=== PATIENT | male | born 1975 | race Caucasian/White ===

== ENCOUNTER 2017-02-13 16:27 | Emergency (ER) | payer MEDICAID ==
[~2017-02-13] VITALS: Ht 165.1 cm; Wt 73.5 kg
[~2017-02-13 16:27] MED LIST: DIAZ-90 PO
[2017-02-13 16:42] VITALS: Ht 165.1 cm; Wt 73.5 kg
[2017-02-13] MEDS ORDERED: ASPIRIN 81 MG TAB PO ONE (21:00)
[2017-02-13 21:19] LABS: ADD SCAN DIFF NO; BASOPHIL # 0.1 10^3/ul (0.0-0.1); BASOPHILS % 0.6 % (0.0-2.0); EOSINOPHILS # 0.3 10^3/ul (0.0-0.5); EOSINOPHILS % 3.6 % (0.0-7.0); HEMATOCRIT 45.9 % (42.0-52.0); HEMOGLOBIN 16.3 g/dl (14.0-18.0); LYMPHOCYTES # 2.8 10^3/ul (0.8-2.9); LYMPHOCYTES % 35.2 % (15.0-51.0); MEAN CORPUSCULAR HEMOGLOBIN 31.4 pg (29.0-33.0); MEAN CORPUSCULAR HGB CONC 35.5 g/dl (32.0-37.0); MEAN CORPUSCULAR VOLUME 88.4 fl (82.0-101.0); MONOCYTE # 0.7 10^3/ul (0.3-0.9); MONOCYTES % 9.3 % (0.0-11.0); NEUTROPHILS % 50.8 % (39.0-77.0); PLATELET COUNT 264 10^3/UL (140-415); RED BLOOD COUNT 5.19 10^6/ul (4.70-6.10); RED CELL DISTRIBUTION WIDTH 12.6 % (11.5-14.5); WHITE BLOOD COUNT 7.9 10^3/ul (4.8-10.8)
[2017-02-13 21:27] LABS: CHLORIDE 101 mmol/L (97-110); POTASSIUM 3.8 mmol/L (3.5-5.1); SODIUM 138 mmol/L (135-144)
[2017-02-13 21:29] LABS: PARTIAL THROMBOPLASTIN TIME 26.8 Sec (25.0-35.0)
--- NOTE | 2017-02-13 21:29 | RADRPT ---
PROCEDURE: XR Chest. CLINICAL INDICATION: Chest pain. TECHNIQUE: PA and Lateral views of the chest were obtained. COMPARISON: None. FINDINGS: The soft tissues are normal. The bony elements are normal. The left ventricle is enlarged. The ca rdiomediastinal silhouette and hilar structures are normal. The pulmonary vasculature is normal. The re is a left-sided aorta. The lungs are clear. The costophrenic angles are normal. IMPRESSION: 1. Mild ventricular enlargement with no evidence of active cardiopulmonary disease. RPTAT:AAJJ Physician Heber Date Time Electronically viewed and signed by Physician Heber on 02/13/2017 21:28 /
[2017-02-13 21:30] LABS: ANION GAP 17 (8-16); CARBON DIOXIDE 24 mmol/L (21-31); CREATININE 0.76 mg/dl (0.61-1.24)
[2017-02-13] MEDS ORDERED: LIDOCAINE/MYLANTA 40 ML BTL PO ONE (21:30)
[2017-02-13 21:31] LABS: BLOOD UREA NITROGEN 13 mg/dl (7-20); CALCIUM 9.1 mg/dl (8.4-10.2); GLUCOSE 126 mg/dl (70-220)
[2017-02-13 21:45] LABS: TROPONIN-I < 0.012 ng/ml (0.00-0.12)
[2017-02-13 21:58] LABS: INR 0.92; PROTIME 12.4 Sec (12.2-14.2)
[2017-02-13 22:41] VITALS: BP 120/68; PULSE 78; RESP 18
[2017-02-13] MEDS ORDERED: KETOROLAC 30 MG INJ IV STA (22:41)
[2017-02-13] MEDS ORDERED: NAPR-688 PO (22:44)
--- NOTE | 2017-02-13 22:51 | ERD ---
ER Documentation Chief Complaint Date/Time DATE: 02/13/17 TIME: 22:45 Chief Complaint chest pain x 4 months and dizziness x 8 months HPI This 41 year male presents to the ER with chest pain described as a aching pain in his left pectoral muscle made worse with flexion of that muscle for 4 months. Also states that he gets dizzy on and off for 8 months. Dizziness is described as slightly lightheaded. He does not have any medical problems and does not have a primary care physician. He has no shortness of breath nausea or vomiting associated with the pain. He does not feel dizzy currently. She had no headaches. He has not suffered any trauma to the area that he knows of but he does occasionally do heavy lifting. ROS All systems reviewed and are negative except as per history of present illness. Medications Home Meds Active Scripts Naproxen* (Naproxen*) 500 Mg Tablet, 500 MG PO BID, #20 TAB Prov:PATELESTELLE 02/13/17 Diazepam* (Valium*) 5 Mg Tablet, 5 MG PO Q8 Y for ANXIETY, #15 TAB Prov:LORRIE ODOM 07/23/16 Allergies Allergies: Coded Allergies: No Known Allergy (Unverified , 07/22/16) PMhx/Soc Medical and Surgical Hx: pt denies Surgical Hx History of Surgery: No Anesthesia Reaction: No Hx Neurological Disorder: No Hx Respiratory Disorders: No Hx Cardiac Disorders: Yes (HTN) Hx Psychiatric Problems: No Hx Miscellaneous Medical Probl: No Hx Alcohol Use: Yes (SOCIAL) Hx Substance Use: No Hx Tobacco Use: No Smoking Status: Never smoker Physical Exam Vitals Vital Signs Date Time Temp Pulse Resp B/P Pulse Ox O2 Delivery O2 Flow Rate FiO2 02/13/17 22:41 78 18 120/68 97 Room Air 02/13/17 20:54 Nasal Cannula 3 02/13/17 20:53 88 18 107/77 97 Room Air 02/13/17 16:42 98.0 86 20 117/79 95 Physical Exam Const: [] No distress Head: Atraumatic Eyes: Normal Conjunctiva, EOMI, EDUARDO. ENT: Normal External Ears, Nose and Mouth. Neck: Full range of motion..~ No meningismus. Resp: Clear to auscultation bilaterally Cardio: Regular rate and rhythm, no murmurs Abd: Soft, non tender, non distended. Normal bowel sounds Skin: No petechiae or rashes Back: No midline or flank tenderness Ext: No cyanosis, or edema Neur: Awake and alert and oriented 3, cranial nerves II through XII intact, 5 or 5 strength all extremities, no cerebellar deficits, normal gait. Psych: Normal Mood and Affect Result Diagram: 02/13/17 2100 02/13/172052 Results 24 hrs Laboratory Tests Test 02/13/17 20:53 02/13/17 21:00 Sodium Level 138mmol/L Potassium Level 3.8mmol/L Chloride Level 101mmol/L Carbon Dioxide Level 24mmol/L Anion Gap 17 Blood Urea Nitrogen 13mg/dl Creatinine 0.76mg/dl Glucose Level 126mg/dl Calcium Level 9.1mg/dl Troponin I < 0.012ng/ml White Blood Count 7.910^3/ul Red Blood Count 5.1910^6/ul Hemoglobin 16.3g/dl Hematocrit 45.9% Mean Corpuscular Volume 88.4fl Mean Corpuscular Hemoglobin 31.4pg Mean Corpuscular Hemoglobin Concent 35.5g/dl Red Cell Distribution Width 12.6% Platelet Count 94289^3/UL Mean Platelet Volume 10.0fl Neutrophils % 50.8% Lymphocytes % 35.2% Monocytes % 9.3% Eosinophils % 3.6% Basophils % 0.6% Nucleated Red Blood Cells % 0.0/100WBC Neutrophils # 4.010^3/ul Lymphocytes # 2.810^3/ul Monocytes # 0.710^3/ul Eosinophils # 0.310^3/ul Basophils # 0.110^3/ul Nucleated Red Blood Cells # 0.010^3/ul Prothrombin Time 12.4Sec Prothrombin Time Ratio 1.0 INR International Normalized Ratio 0.92 Activated Partial Thromboplast Time 26.8Sec Current Medications Medications (Trade) Dose Ordered Sig/Elvira Route PRN Reason Start Time Stop Time Status Last Admin Dose Admin Aspirin (Aspirin) 324 mg ONCE ONCE PO 02/13/17 21:00 02/13/17 21:01 DC 02/13/17 21:04 Miscellaneous Medication (Gi Cocktail (2)) 40 ml ONCE ONCE PO 02/13/17 21:30 02/13/17 21:31 DC 02/13/17 21:49 Ketorolac Tromethamine (Toradol) 30 mg ONCE STAT IV 02/13/17 22:41 02/13/17 22:42 DC Procedures/MDM Chest pain reproducible with muscle flexion. Patient is given Ativan 25 mg aspirin emergency room, GI cocktail. Pain stayed the same. Patient was then given IV Toradol which dramatically reduced the pain. Chest pain is likely musculoskeletal however there is occasionally accompanying dizziness. Radiologist does note possible left ventricular enlargement on x-ray. I believe the patient should establish a primary care physician follow-up and get a referral for an outpatient echocardiogram to be safe. I'm discharging with naproxen. EKG interpretation #1: Normal sinus rhythm, rate of 86, indeterminate axis, no ST-T wave changes concerning for acute ischemia, normal intervals. Normal EKG EKG interposition #2: Normal sinus rhythm, rate of 85, normal axis, normal intervals, no ST or T-wave changes concerning for acute ischemia. Normal EKG Chest x-ray interpretation: I see no acute process. I see no widened mediastinum , no pneumothorax no pulmonary edema, no infiltrates, no bony abnormalities deblocker interpretation: Normal sinus rhythm without arrhythmia. Departure Diagnosis: Primary Impression: Chest pain Condition: Stable Patient Instructions: Chest Pain, Uncertain Cause Referrals: COMM[facility] CL[facility] YOU HAVE RECEIVED A MEDICAL SCREENING EXAM AND THE RESULTS INDICATE THAT YOU DO NOT HAVE A CONDITION THAT REQUIRES URGENT TREATMENT IN THE EMERGENCY DEPARTMENT. FURTHER EVALUATION AND TREATMENT OF YOUR CONDITION CAN WAIT UNTIL YOU ARE SEEN IN YOUR DOCTORS OFFICE WITHIN THE NEXT 1-2 DAYS. IT IS YOUR RESPONSIBILITY TO MAKE AN APPOINTMENT FOR FOLOW-UP CARE. IF YOU HAVE A PRIMARY DOCTOR --you should call your primary doctor and schedule an appointment IF YOU DO NOT HAVE A PRIMARY DOCTOR YOU CAN CALL OUR PHYSICIAN REFERRAL HOTLINE AT IF YOU CAN NOT AFFORD TO SEE A PHYSICIAN YOU CAN CHOSE FROM THE FOLLOWING [facility] [address] [facility] [address] [facility] [address] [facility] [address] [facility] [address] [facility]. [facility]. [address] Additional Instructions: Llame al doctor MAANA y marco antonio tank MADAN PARA DENTRO DE 2-3 [place]. Consigue un referral para un ECHOCARDIOGRAM. Dgale a la secretaria que nosotros le instruimos hacer esta madan.Avise o llame si villalpando condicin se empeora antes de la madan. Regresa aqui si peor o no mejor. ESTELLE SWEENEY DO Feb 13, 2017 22:51
== END 2017-02-13 23:04 | disposition home or self-care (01) ==
LOC: E/R 16:27
DX: R07.89 Other chest pain (principal); I10 Essential (primary) hypertension
CPT/HCPCS: 71010; 80048; 84484; 85025; 85610; 85730; 93005; J1885; Z7610; 36415; 96374